=== PATIENT | female | born 1950 | race Caucasian/White ===

== ENCOUNTER 2021-11-24 12:10 | Outpatient (CLI) | payer MEDICARE, OTHER ==
--- NOTE | 2021-11-24 16:34 | XRAY Report ---
PROCEDURE: Wrist 4 View LT INDICATIONS: LEFT WRIST PAIN TECHNIQUE: 4 views of the wrist were acquired. COMPARISON: None FINDINGS: Bones: No fractures or dislocations. No suspicious bony lesions. Generalized decreased osseous mine ralization present. Mild intercarpal joint space narrowing Scaphoid view: Unremarkable Soft tissues: No suspicious soft tissue calcifications. IMPRESSION: Osteopenia without fracture or foreign body Reviewed by: Fletcher Gunderson MD on 11/24/2021 3:33 PM [facility]DT Approved by: Fletcher Gunderson MD on 11/24/2021 3:33 PM AKDT Station ID: [id number]
== END 2021-11-24 12:11 | disposition home or self-care (01) ==
LOC: DI 12:10
PROVIDERS: ATTEND Physician Assistant
DX: M25.532 Pain in left wrist (principal); M85.88 Other specified disorders of bone density and structure, other site

== ENCOUNTER 2023-07-25 18:27 | Outpatient (CLI) | payer MEDICARE, OTHER ==
--- NOTE | 2023-07-26 16:28 | Ultrasound Report ---
PROCEDURE: Pelvic Complete INDICATIONS: R LOWER QUAD PAIN TECHNIQUE: Real-time transabdominal scanning was performed of the pelvic organs, with image documentation. COMPARISON: Abdomen ultrasound 07/25/2023 FINDINGS: Uterus: Uterus is anteverted and normal in size at 6.4 x 2.1 x 3.3 cm. The myometrium is homogeneou s. The endometrium measures 3 mm in combined thickness. Ovaries: The right ovary measures 2.4 x 1.3 x 2.0 cm, with a calculated ovarian volume of 3.3 cc. T he left ovary measures 1.8 x 1.7 x 1.2 cm, with a calculated ovarian volume of 0.9 cc. The ovaries h ave a normal sonographic appearance. Less than 12 follicles can be seen in each ovary. No adnexal m asses are seen. No cystic lesions measuring greater than 3 cm. Other: No free pelvic fluid. No visualized hernia. IMPRESSION: Unremarkable exam. Reviewed by: Ashley Oliveira MD on 07/26/2023 4:26 PM PDT Approved by: Ashley Oliveira MD on 07/26/2023 4:26 PM PDT Station ID: [id number]
--- NOTE | 2023-07-26 16:31 | Ultrasound Report ---
PROCEDURE: Abdomen Complete INDICATIONS: R LOWER QUAD PAIN TECHNIQUE: Real-time scanning was performed of the abdominal and retroperitoneal organs, with image documentatio n. COMPARISON: None. FINDINGS: Liver: Liver is normal in size and homogeneous in echotexture. Gallbladder: Multiple mobile areas of increased echogenicity are identified. Wall thickness is presen t measuring 2.6 mm Biliary ducts: Intrahepatic bile ducts are non-dilated. Extrahepatic bile duct caliber measures 3 m m. Normal is 6-7 mm or less in diameter, or 10 mm or less post-cholecystectomy. Pancreas: Visualized portions of the pancreas are sonographically normal. Spleen: Spleen is normal in size and homogeneous in echotexture. Kidneys: Kidneys are normal in size and echotexture. Right kidney measures 9 point cm long; left ki dney measures 10.4 cm long. No hydronephrosis or nephrolithiasis. No solid masses. No complex renal cystic lesions which require follow-up. Simple left renal cyst measuring 5.4 x 6.0 x 5.9 cm. Aorta: Visualized aorta is normal in caliber at less than 3 cm. Iliacs: Proximal common iliac arteries are normal in caliber at less than 2.5 cm. IVC: Intrahepatic inferior vena cava is patent. Miscellaneous: No free abdominal fluid. IMPRESSION: Cholelithiasis without cholecystitis. Simple left renal cyst. Reviewed by: Ashley Oliveira MD on 07/26/2023 4:29 PM PDT Approved by: Ashley Oliveira MD on 07/26/2023 4:29 PM PDT Station ID: [id number]
== END 2023-07-25 18:28 | disposition home or self-care (01) ==
LOC: DI 18:27
PROVIDERS: ATTEND Nurse Practitioner Family
DX: R10.31 Right lower quadrant pain (principal); K80.20 Calculus of gallbladder without cholecystitis without obstruction; N28.1 Cyst of kidney, acquired